=== PATIENT | male | born 1990 | race Caucasian/White ===

== ENCOUNTER 2022-09-11 17:25 | Inpatient (IN) ==
[2022-09-11] MEDS ORDERED: SODIUM CHLORIDE 1,000 ML IV STA (17:47)
[2022-09-11] MEDS ORDERED: ZOSYN 3.375 GM 3.375 GM in SODIUM CHLORIDE 100ML 100 ML IV ONE (17:47)
[2022-09-11] MEDS ORDERED: BOOSTRIX IM ONE (17:47)
--- NOTE | 2022-09-11 17:47 | ED.PDOC ---
General ED Provider: Dr. YOLANDA MEI MD Chief Complaint: Bite Stated Complaint: 8 day hx of progressive enlargement of erythemic right lower abdominal cellulitis, mild to mod ache pain, pt stuck it w/ a pin to drain pus, pt believes it started as a spider bite, pt seen previously and started on keflex, no hx dm Time Seen by Provider: 09/11/22 17:33 Mode of Arrival: Walk-In Information Source: Patient Nursing and Triage Documentation Reviewed and Agree: Yes Does patient meet sepsis criteria?: No System Inflammatory Response Syndrome: Not Applicable Sepsis Protocol: For patient's 13 years and over: Temp is 96.8 and below OR 101 and greater Pulse >90 BPM Resp >20/minute Acutely Altered Mental Status Are patient's symptoms suggestive of a new infection, such as: -Pneumonia -Skin, Soft Tissue -Endocarditis -UTI -Bone, Joint Infection -Implantable Device -Acute Abdominal Infection -Wound Infection -Meningitis -Blood Stream Catheter Infection -Unknown Review of Systems Review Of Systems Constitutional: Denies Fever or Malaise Eyes: Denies Vision change Ears, Nose, Mouth, Throat: Denies Throat pain Respiratory: Denies Cough Cardiac: Denies Chest pain GI: Reports Abdominal pain; Denies Vomiting : Denies Frequency Musculoskeletal: Denies Neck pain Skin: Reports Rash Neurological: Denies Cognitive dysfunction All Other Systems: Other Physical Exam Physical Exam Appearance: Reports Obese Ill-appearing: None Pain Distress: None Eyes: Reports Conjunctiva clear ENT: Reports Oropharynx normal Neck: Supple Respiratory: Reports Airway patent Cardiovascular: Reports RRR GI/: Reports Soft and Tender (no rebound) Musculoskeletal: Reports ROM intact Skin: Reports Warm, Dry and Other (approx 20x5cm rlq uniform erythema w/ central 1cm dry ulcer, no fluc mass) Neurological: Reports Alert and Oriented Psychiatric: Reports Affect appropriate Interpretation Radiology Interpretation Radiology Interpretation By: Radiologist Exam Interpreted: CT Scan Xray Comments: cellulitis, no abscess Critical Care Note Critical Care Note Total Critical Care Time (mins): 0 Course Course Hematology/Chemistry: 09/11/22 18:05 09/11/22 18:05 Orders, Labs, Meds: Lab Review 09/11/22 09/11/22 09/11/22 18:05 18:05 18:05 WBC 8.73 RBC 4.75 Hgb 14.6 Hct 42.4 MCV 89.3 MCH 30.7 MCHC 34.4 RDW Coeff of Katt 12.5 Plt Count 316 Immature Gran % (Auto) 0.1 Neut % (Auto) 59.4 Lymph % (Auto) 30.5 Davie % (Auto) 7.7 Eos % (Auto) 1.8 Baso % (Auto) 0.5 Neut # (Auto) 5.2 Lymph # (Auto) 2.7 Davie # (Auto) 0.7 Eos # (Auto) 0.2 Baso # (Auto) 0.0 Immature Gran # (Auto) 0.0 Sodium 142.9 Potassium 4.13 Chloride 108.5 H Carbon Dioxide 26.5 Anion Gap 12.03 BUN 15.9 Creatinine 1.02 Estimated GFR (MDRD) 84.00 BUN/Creatinine Ratio 15.58 Glucose 85.4 Lactic Acid 1.45 Calcium 9.06 Total Bilirubin 0.48 AST 44.4 ALT 39.9 Alkaline Phosphatase 89.2 Total Protein 7.80 Albumin 4.54 Globulin 3.26 Albumin/Globulin Ratio 1.39 Orders Category Date Time Status BLOOD CULTURE Stat LAB 09/11/22 18:05 Received CBC W/ AUTO DIFF Stat LAB 09/11/22 18:05 Completed CMP [COMPREHENSIVE METABOLIC PANEL] Stat LAB 09/11/22 18:05 Completed LACTIC ACID Stat LAB 09/11/22 18:05 Completed URINALYSIS C & S IF INDICATED Stat LAB 09/11/22 17:47 Uncollected Diphth,Pertuss(Acell),Tet Vac [Boostrix] MEDS 09/11/22 17:47 Discontinued 0.5 ml IM .ONCE ONE Piperacillin Sodium/Tazobactam [Zosyn 3.375 gm] 3.375 MEDS 09/11/22 17:47 Discontinued gm 0.9 % Sodium Chloride [Sodium Chloride 100Ml] 100 ml IV ONCE Sodium Chloride 0.9% [Sodium Chloride] 1,000 ml MEDS 09/11/22 17:[address] ABDOMEN/PELVIS WO CONTRAST Stat RADS 09/11/22 18:18 Completed Medications Discontinued Medications Generic Name Dose Route Start Last Admin Trade Name Freq PRN Reason Stop Dose Admin Diphtheria/Pertussis/Tetanus Vacc 0.5 ml 09/11/22 17:47 09/11/22 18:29 Diphth,Pertuss(Acell),Tet Vac 0.5 Ml Disp.Syrin IM 09/11/22 17:48 0.5 ml .ONCE ONE Administration Sodium Chloride 1,000 mls @ 1,000 mls/hr 09/11/22 17:47 09/11/22 18:31 Sodium Chloride IV 09/11/22 18:46 1,000 mls/hr BOLUS STA Administration Piperacillin Sod/Tazobactam 100 mls @ 100 mls/hr 09/11/22 17:47 09/11/22 18:31 Sod 3.375 gm/ Sodium Chloride IV 09/11/22 18:46 100 mls/hr ONCE ONE Administration Vital Signs: Temp Pulse Resp BP Pulse Ox 09/11/22 17:26 98.7 F 100 20 151/91 H 95 Discharge Plan Discharge Patient Disposition: ADMITTED INPATIENT Discharge Problem: Cellulitis Prescriptions: No Action cephalexin [Keflex] 500 mg Capsule 500 mg PO QID Did you review [place] [employer]ACTIVATOR OPERATOR for ALL controlled substances?: Not Applicable ED Provider: YOLANDA MEI Condition: Stable Physician Progress Note: pt full admit to hospitalist for cellulitis []
[2022-09-11 18:14] LABS: BASOPHILS % (AUTO) 0.5 % (0.0-3.0); EOSINOPHILS # (AUTO) 0.2 K/ul (0.0-0.7); EOSINOPHILS % (AUTO) 1.8 % (0.0-7.0); HEMATOCRIT 42.4 % (42.0-52.0); HEMOGLOBIN 14.6 g/dl (14.0-18.0); IMMATURE GRANULOCYTE % (AUTO) 0.1 % (0.0-5.0); LYMPHOCYTES # (AUTO) 2.7 K/uL (0.60-3.4); LYMPHOCYTES % (AUTO) 30.5 (10.0-50.0); MEAN CORPUSCULAR HEMOGLOBIN 30.7 pg (27.0-31.0); MEAN CORPUSCULAR HGB CONC 34.4 (31.8-35.4); MEAN CORPUSCULAR VOLUME 89.3 fl (80.0-94.0); MONOCYTES # (AUTO) 0.7 K/uL (0.4-2.0); MONOCYTES % (AUTO) 7.7 (0-10); NEUTROPHILS # (AUTO) 5.2 K/ul (2.0-6.9); NEUTROPHILS % (AUTO) 59.4 % (42.2-75.2); PLATELET COUNT 316 10^3/uL (140-440); RDW COEFFICIENT OF VARIATION 12.5 % (11.6-14.8); RED BLOOD COUNT 4.75 10^6/ul (4.70-6.10); WHITE BLOOD COUNT 8.73 K/ul (4.2-10.2)
[2022-09-11 18:26] LABS: ALANINE AMINOTRANSFERASE 39.9 U/L (0-50); ALBUMIN 4.54 g/dL (3.5-5.0); ALKALINE PHOSPHATASE 89.2 U/L (38-126); ASPARTATE AMINO TRANSFERASE 44.4 U/L (17-59); BILIRUBIN,TOTAL 0.48 mg/dL (0.2-1.3); BLOOD UREA NITROGEN 15.9 mg/dL (9-20); CALCIUM 9.06 mg/dL (8.4-10.2); CARBON DIOXIDE 26.5 mmol/L (22-30.0); CHLORIDE 108.5 mmol/L (98-107); CREATININE 1.02 mg/dL (0.60-1.10); GLUCOSE 85.4 mg/dL (74-106); POTASSIUM 4.13 mmol/L (3.5-5.1); SODIUM 142.9 mmol/L (134.5-145); TOTAL PROTEIN 7.8 g/dL (6.3-8.2)
--- NOTE | 2022-09-11 18:44 | CT ---
EXAM: NONCONTRAST CT OF THE ABDOMEN AND PELVIS HISTORY: Spider bite COMPARISON: 01/10/2017 TECHNIQUE: Axial noncontrast CT of the abdomen and pelvis with sagittal and coronal reformats. FINDINGS: Noncontrast technique limits evaluation of abdominal viscera. The liver is mildly hypodense. The ga llbladder is contracted. The unenhanced spleen, adrenals, kidneys and pancreas are unremarkable in a ppearance. Presumed ingested material is seen in the stomach. There is no abnormal bowel dilation. Diverticulo sis is identified without evidence of diverticulitis. The appendix is normal. No free air or free fluid is identified. There is a tiny fat containing umbilical hernia. There is mild remote anterior wedging of T11 and T12. Multilevel degenerative disc disease is seen and up to moderate at L4-5. A tiny fat containing umbilical hernia is noted. Right anterolateral abdominal wall skin thickening is identified with underlying fat stranding. No f luid collection is seen. IMPRESSION: Right anterolateral abdominal wall skin thickening with underlying fat stranding compatible with cell ulitis. No abscess. No acute intra-abdominal findings. Mild fatty infiltration of the liver. Diverticulosis. All CT scans are performed using dose optimization techniques as appropriate to the performed exam an d include at least one of the following: Automated exposure control, adjustment of the mA and/or kV according t o size, and the use of iterative reconstruction technique.
[2022-09-11] MEDS ORDERED: TYLENOL PO PRN (18:48)
[2022-09-11] MEDS ORDERED: SODIUM CHLORIDE 1,000 ML IV SCH (19:00)
[2022-09-11 19:50] LABS: SARS COV-2 RNA RAPID NAAT NEGATIVE (NEGATIVE)
[2022-09-11 20:32] VITALS: BMI 41.3
[2022-09-11] MEDS ORDERED: NICODERM 21 MG TD SCH (21:00)
[2022-09-11] MEDS ORDERED: BENADRYL PO ONE (21:06)
[2022-09-12] MEDS: ZOSYN 3.375 GM 3.375 GM in SODIUM CHLORIDE 100ML 100 ML IV SCH ×2 (01:00→05:15)
[2022-09-12 01:11] LABS: BILIRUBIN,URINE Negative (NEGATIVE); CLARITY,URINE Clear (CLEAR); COLOR,URINE Yellow (YELLOW); GLUCOSE, URINE (UA) Negative (NEGATIVE); KETONES,URINE Negative (NEGATIVE); LEUKOCYTE ESTERASE ,URINE Negative (NEGATIVE); NITRITE,URINE Negative (NEGATIVE); PH,URINE 6.5 (5-9); PROTEIN,URINE Negative (NEGATIVE); URINE, BLOOD Negative (NEGATIVE); UROBILINOGEN,URINE 0.2 (0.2)
[2022-09-12 05:15] LABS: BASOPHILS % (AUTO) 0.6 % (0.0-3.0); EOSINOPHILS # (AUTO) 0.4 K/ul (0.0-0.7); HEMATOCRIT 39.8 % (42.0-52.0); HEMOGLOBIN 13.4 g/dl (14.0-18.0); IMMATURE GRANULOCYTE % (AUTO) 0.1 % (0.0-5.0); LYMPHOCYTES # (AUTO) 2.6 K/uL (0.60-3.4); LYMPHOCYTES % (AUTO) 36.7 (10.0-50.0); MEAN CORPUSCULAR HEMOGLOBIN 30.8 pg (27.0-31.0); MEAN CORPUSCULAR HGB CONC 33.7 (31.8-35.4); MEAN CORPUSCULAR VOLUME 91.5 fl (80.0-94.0); MONOCYTES # (AUTO) 0.7 K/uL (0.4-2.0); MONOCYTES % (AUTO) 9.1 (0-10); NEUTROPHILS # (AUTO) 3.5 K/ul (2.0-6.9); NEUTROPHILS % (AUTO) 48.5 % (42.2-75.2); PLATELET COUNT 268 10^3/uL (140-440); RDW COEFFICIENT OF VARIATION 12.9 % (11.6-14.8); RED BLOOD COUNT 4.35 10^6/ul (4.70-6.10); WHITE BLOOD COUNT 7.13 K/ul (4.2-10.2)
[2022-09-12 05:29] VITALS: BP 127/79; TEMP 97.8
[2022-09-12 05:29] LABS: ALANINE AMINOTRANSFERASE 32.4 U/L (0-50); ALBUMIN 3.72 g/dL (3.5-5.0); ALKALINE PHOSPHATASE 76.1 U/L (38-126); ASPARTATE AMINO TRANSFERASE 34.8 U/L (17-59); BILIRUBIN,TOTAL 0.52 mg/dL (0.2-1.3); BLOOD UREA NITROGEN 15.5 mg/dL (9-20); CALCIUM 8.1 mg/dL (8.4-10.2); CARBON DIOXIDE 27.3 mmol/L (22-30.0); CHLORIDE 107.6 mmol/L (98-107); GLUCOSE 97.4 mg/dL (74-106); POTASSIUM 4.05 mmol/L (3.5-5.1); SODIUM 139.4 mmol/L (134.5-145); TOTAL PROTEIN 6.62 g/dL (6.3-8.2)
--- NOTE | 2022-09-12 08:56 | PCM.PROG ---
Date Seen by Provider: 09/12/22 Time Seen by Provider: 08:10 Subjective: No complaints. Objective: Vitals: T=97.8 F, P=76, R=18, FG=529/79, SPO2=98 Alert and appears comfortable. HEENT: [] Neck: [] Lungs: [] CVS: [] Abdomen: [] Erythema appears to be essentially unchanged. Affected area is tender. No fluctuance or drainage. Extremities: [] Neurological: [] Skin: [] Lab/Tests/Diagnostic Imaging: [] (1) Cellulitis: Status: Acute Code(s): L03.90 - Cellulitis, unspecified SNOMED Code(s): 172261538 Plan: Continue IV antibiotics. CT abd/pelvis on admission without abd wall abscess.
--- NOTE | 2022-09-12 10:50 | PCM.PROG ---
IP AMA Note Reason for Admission Reason for Admission: cellulitis abdominal wall Treatment Plan/Noncompliance by Patient Treatment Plan/Noncompliance by Patient: Patient was receiving Zosyn for abdominal wall cellulitis related to a probable spider bite. He was seen on morning rounds and plan of care discussed with him. Patient understood and was agreeable with the plans. I was contacted 2 hours later by his nurse and informed that he had left AMA without having given notice. Discharge Disposition Discharge Disposition: Patient left AMA at []. Patient's statement as to reason for leaving (if applicable): []. Patient left AMA without providing reason or notice.
[2022-09-12] MEDS ORDERED: NICODERM 21 MG TD SCH (21:00)
== END 2022-09-12 10:32 | disposition left against medical advice (07) | DRG 603 ==
LOC: ED 17:25 → MEDSURG A 19:39
PROVIDERS: ADMIT Emergency Medicine Emergency Medical Services; ATTEND Surgery
DX: L03.311 Cellulitis of abdominal wall; L03.90 Cellulitis, unspecified; Z20.822 Contact with and (suspected) exposure to COVID-19